=== PATIENT | male | born 1975 | race Two or more races ===

== ENCOUNTER 2020-11-28 23:36 | Emergency (ER) | payer MEDICARE, OTHER ==
[2020-11-28 23:43] VITALS: BP 128/78; PULSE 78; RESP 19; TEMP 97.9
[2020-11-29] MEDS ORDERED: CEPHALEXIN 500MG STARTER PACK 4 CAP BTL PO STA (00:06)
--- NOTE | 2020-11-29 00:07 | ED ---
Skin/Abscess/FB HPI - General Chief complaint: Skin/Abscess/Foreign Body Stated complaint: Leg Abscess/ poss bite Time Seen by Provider: 11/29/20 00:00 Source: patient, RN notes reviewed Mode of arrival: ambulatory Limitations: no limitations - History of Present Illness Initial comments: This a 45-year-old male presents emergency Department with chief complaint of left leg infection. Patient states he felt most likely days ago she takes scratch that he notices been increasing redness. Patient is a known diabetic his blood sugar has been within normal limits. Patient states redness seems to be spreading no fevers or chills no night sweats. - Related Data Previous Rx's Medication Instructions Recorded Cephalexin [Keflex] 500 mg PO Q6HR #40 cap 11/29/20 Allergies Allergy/AdvReac Type Severity Reaction Status Date / Time Penicillins Allergy Rash/Hives Verified 11/28/20 23:43 Review of Systems ROS Statement: Those systems with pertinent positive or pertinent negative responses have been documented in the HPI. ROS Other: All systems not noted in ROS Statement are negative. Past Medical History Past Medical History: No Reported History History of Any Multi-Drug Resistant Organisms: None Reported Past Surgical History: No Surgical Hx Reported Smoking Status: Current some day smoker Past Alcohol Use History: None Reported Past Drug Use History: None Reported General Exam Limitations: no limitations General appearance: alert, in no apparent distress Head exam: Present: atraumatic, normocephalic, normal inspection Respiratory exam: Present: normal lung sounds bilaterally. Absent: respiratory distress, wheezes, rales, rhonchi, stridor Cardiovascular Exam: Present: regular rate, normal rhythm, normal heart sounds. Absent: systolic murmur, diastolic murmur, rubs, gallop, clicks Extremities exam: Present: other (Left leg there is noted wound with surrounding erythema no purulent drainage no necrotic skin mild increased warmth) Course Vital Signs 11/28/20 23:40 Temperature 97.9 F Pulse Rate 78 Respiratory 19 Rate Blood Pressure 128/78 O2 Sat by Pulse 99 Oximetry Medical Decision Making - Medical Decision Making Patient has left lower leg cellulitis was started on Keflex return parameters were discussed. Disposition Clinical Impression: Left leg cellulitis Disposition: HOME SELF-CARE Condition: Stable Instructions (If sedation given, give patient instructions): Cellulitis (ED) Additional Instructions: Please return to the Emergency Department if symptoms worsen or any other concerns. Prescriptions: Cephalexin [Keflex] 500 mg PO Q6HR #40 cap Is patient prescribed a controlled substance at d/c from ED?: No Referrals: Nonstaff,Physician [Primary Care Provider] - 1-2 days Time of Disposition: 00:07
== END 2020-11-29 00:18 | disposition home or self-care (01) ==
LOC: EC 23:36
DX: L03.116 Cellulitis of left lower limb (principal); F17.200 Nicotine dependence, unspecified, uncomplicated; Z88.0 Allergy status to penicillin
CPT/HCPCS: 99283

== ENCOUNTER 2023-11-12 03:45 | Emergency (ER) | payer OTHER ==
[2023-11-12] MEDS ORDERED: DIPH,PERTUS(ACELL)TETVAC-LF 0.5 ML VIAL IM ONE (03:59)
[2023-11-12] MEDS ORDERED: HYDROmorphone 1 MG/ML 1 ML SYRINGE ONE ×2 (03:59→07:39)
[2023-11-12] MEDS ORDERED: D5W PMX ONE (04:30)
[2023-11-12] MEDS ORDERED: SODIUM CHLORIDE 0.9% 1,000 ML BAG ONE (04:30)
[2023-11-12] MEDS ORDERED: CLINDAMYCIN 600 MG/50 ML ONE (04:30)
[2023-11-12] MEDS ORDERED: LIDOCAINE 1% INJ 10MG/ML (20 ML MDV) ONE (06:24)
--- NOTE | 2023-12-15 14:58 | XR ---
Site ID [facility] Vivien Degroot, Gene ID [id number] Order # Procedure CHEST SINGLE VIEW EXAMINATION TYPE: XR chest 1V DATE OF EXAM: 11/13/2023 10:06 AM CLINICAL INDICATION: Trauma COMPARISON: THIS EXAM WAS READ DURING PACS DOWNTIME, NO PRIORS AVAILABLE. TECHNIQUE: XR chest 1V Frontal view of the chest. FINDINGS: Lungs/Pleura: There is no evidence of pleural effusion, focal consolidation, or pneumothorax. Pulmonary vascularity: Unremarkable. Heart/mediastinum: Cardiomediastinal silhouette is unremarkable. Musculoskeletal: No acute osseous pathology. Other findings: None Lines/Tubes: IMPRESSION: No acute cardiopulmonary disease/process.
--- NOTE | 2023-12-15 14:59 | XR ---
Site ID [facility] Vivien Degroot, Gene ID [id number] Order # Procedure KNEE 3V (R) EXAMINATION TYPE: XR knee limited RT DATE OF EXAM: 11/13/2023 10:10 AM CLINICAL INDICATION: Trauma COMPARISON: THIS EXAM WAS READ DURING PACS DOWNTIME, NO PRIORS AVAILABLE. TECHNIQUE: XR knee complete RT; examined in Frontal, oblique projections. FINDINGS: No evidence of any acute osseous pathology, soft tissue swelling, or joint effusion is no neo. IMPRESSION: 1. No acute osseous pathology.
--- NOTE | 2023-12-15 14:59 | XR ---
Site ID [facility] Vivien Degroot, Gene ID [id number] Order # Procedure PELVIS EXAMINATION TYPE: XR pelvis AP view DATE OF EXAM: 11/13/2023 10:08 AM CLINICAL INDICATION: Trauma COMPARISON: THIS EXAM WAS READ DURING PACS DOWNTIME, NO PRIORS AVAILABLE. TECHNIQUE: XR pelvis AP view, examined in a single projection. FINDINGS: There is no evidence of fracture or dislocation. There is no soft tissue abnormality. No a bnormal calcifications are present. The spine appears intact. The hips appear intact. No significant degeneration. IMPRESSION: No acute osseous pathology.
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
== END 2023-11-12 08:55 | disposition other institution (70) ==
LOC: EC 03:45
CPT/HCPCS: 70450; 71045; 71260; 72125; 72170; 74177; 86850; 86900; 86901; 90715; 93005; 99284